=== PATIENT | male | born 1995 | race Caucasian/White ===

== ENCOUNTER → 2022-01-29 | Outpatient (CLI) | payer OTHER, SELFPAY ==
--- NOTE | 2022-01-29 11:02 | RAD_ITS ---
STUDY: X-RAY CHEST REASON FOR EXAM: Male, 26 years old. AORTIC DISSECTION TECHNIQUE: PA and lateral views of the chest. COMPARISON: None. FINDINGS: Hyperinflation. Scattered calcified granulomas. The lungs are clear. There is no demonstrated pleural abnormality. Normal size heart. Normal mediastinum and kobe. Normal visualized pulmonary arteries. Normal visualized aortic arch and descending thoracic aorta. Normal visualized thoracic spine. Normal visualized ribs, clavicles, and shoulders. There is no demonstrated abnormality of the visualized soft tissue structures of the upper abdomen. RAD/Chest PA and Lateral IMPRESSION: Hyperinflation. The lungs are clear. Electronically Signed: Ken Spicer MD at 13:38 EDT ,
== END | disposition home or self-care (01) ==
LOC: MTRAD 10:59
PROVIDERS: PCP Family Medicine; Referring Provider Family Medicine; Visit Provider Family Medicine
DX: I71.00 Dissection of unspecified site of aorta (principal); Z82.49 Family history of ischemic heart disease and other diseases of the circulatory system
CPT/HCPCS: 71046

== ENCOUNTER → 2022-08-14 | Outpatient (CLI) | payer OTHER, SELFPAY ==
[2022-08-14 19:14] LABS: HIV - WCH Non-Reactive (Nonreactive); Hepatitis C Antibody Non-Reactive (Nonreactive)
[2022-08-16 12:07] LABS: Hepatitis B Core Ab Total Negative (Negative)
== END | disposition home or self-care (01) ==
LOC: BFHLAB 14:38
PROVIDERS: PCP Family Medicine; Referring Provider Family Medicine; Visit Provider Family Medicine
DX: Z11.9 Encounter for screening for infectious and parasitic diseases, unspecified (principal)
CPT/HCPCS: 36415; 86703; 86704; 86803

== ENCOUNTER → 2022-08-21 | Outpatient (CLI) | payer OTHER, SELFPAY ==
[2022-08-21 16:13] LABS: Hepatitis B Surface Antigen Non-Reactive (Nonreactive)
== END | disposition home or self-care (01) ==
LOC: BFHLAB 13:10
PROVIDERS: PCP Family Medicine; Referring Provider Family Medicine; Visit Provider Family Medicine
DX: Z11.9 Encounter for screening for infectious and parasitic diseases, unspecified (principal); Z20.9 Contact with and (suspected) exposure to unspecified communicable disease
CPT/HCPCS: 36415; 87340

== ENCOUNTER 2022-09-25 19:03 | Emergency (ER) | payer OTHER, SELFPAY ==
[2022-09-25 19:05] VITALS: BP 150/83; PULSE 76; RESP 19; TEMP 36.6; O2SAT 100; BMI 24.0
--- NOTE | 2022-09-25 20:10 | EDS_ITS ---
HPI History of Present Illness Chief Complaint: Edema PFSH PFS Medical History Former smoker Home Medications creatine monohydrate ea PO 09/25/22 [History Last Taken Unknown] wwakvcggpwhl-xwamcwut-ecxbs acid 400 mcg-vitamin K 40 mcg capsule 1 cap PO DAILY 09/25/22 [History Last Taken Unknown] Allergy/AdvReac Type Severity Reaction Status Date / Time No Known Allergies Allergy Verified 09/25/22 19:06 Social History Smoking Status: Former smoker EXAM Physical Exam Const Vital Signs: 09/25/22 19:05 09/25/22 20:14 Temperature 97.9 F Temperature Source Temporal Pulse Rate 76 Respiratory Rate 19 H Respiratory Pattern Normal Blood Pressure 150/83 H Blood Pressure Mean 105 Pulse Ox 100 Oxygen Delivery Method Room Air MDM MDM MDM Narrative Medical decision making narrative: HISTORY OF PRESENT ILLNESS: 27-year-old male here for bilateral lower extremity swelling. He states after working outdoors all day he noted swelling in bilateral lower legs. He states this resolved with rest. Denies any chest pain, shortness of breath. Denies alcohol use. Denies any skin discolorations or jaundice. Denies any decreased urination. Does note he takes creatine. Patient denies active cancer, being bedridden for greater than 3 days, denies unilateral leg swelling, denies any varicose veins, denies any calf tenderness. Denies major surgery within 12 weeks, recent paralysis, previous DVT. REVIEW OF SYSTEMS: Pertinent positives: Bilateral lower extremity edema Pertinent negatives: Shortness of breath, skin discoloration such as jaundice, chest pain, unilateral leg swelling PHYSICAL EXAM: Nursing triage notes reviewed, Vital signs reviewed Constitutional: please see mdm HENT: MMM, no scleral icterus Eyes: Pupils equal round and reactive to light, Extraocular muscles intact Neck: No stridor, no JVD, full neck ROM Lungs: Clear to auscultation, No wheezing or rales. No increased work of breathing, no conversational dyspnea, no accessory muscle use, no nasal flaring. No respiratory distress noted Heart: Regular rate and rhythm, No murmurs, No rubs and No gallops, 2+ distal pulses (radial, femoral, posterior tibial) in all extremities Abdomen: Soft, there is no tenderness, rigidity, rebound or guarding, no obvious peritoneal signs, no palpable pulsatile abdominal masses, no auscultated abdominal bruit : No CVAT Extremities: No edema Neuro: Intact sensation L1-S1 dermatomal distributions. Intact 5/5 strength in hip flexion (T12-L3). Knee extension (L2-L4). Ankle dorsiflexion (L4-L5). Ankle plantar flexion (S1). Great toe extension (L5). 2+ patellar and Achilles DTRs. Skin: No rash or lesions noted, no jaundice noted MEDICAL DECISION MAKING: Chief Complaint: Leg swelling External records reviewed: No recent echocardiogram, stress test or catheterizations noted in the chart Factors affecting care: None Social determinants of health: None, no alcohol use History obtained from others: The patient's girlfriend Consults: None ALL IMAGES HAVE BEEN PERSONALLY REVIEWED AND INTERPRETED BY MYSELF. MDM Narrative: Patient was hemodynamically stable, afebrile, nontoxic-appearing. Exam without lower extremity edema, no unilateral leg swelling or calf tenderness. No stigmata of VTE. There is no rales on exam. Patient appeared well otherwise healthy. I considered the following differential diagnosis: CHF, liver dysfunction, kidney dysfunction, arrhythmia, venous insufficiency I suspect the patient's presentation is likely secondary to venous insufficiency from working outside in the hot roof all day. I obtained an EKG, chest x-ray and labs to rule out signs of CHF, liver dysfunction, renal dysfunction. Labs and images were remarkable for no evidence of liver dysfunction, kidney dysfunction. EKG without evidence of arrhythmia or myocardial ischemia. Chest x-ray without evidence of CHF. No clear life-limiting etiology to be ascertained. The patient is point for discharge home with close outpatient follow-up. Patient's liver enzymes were mildly elevated does not life- threatening at this time. Recommended repeat lab evaluation at the next possible appointment. Patient's breast understanding. He agreed to return if symptoms change or worsen. He agreed with the plan. Total critical care time today provided was at least 0 minutes. This excludes separately billable procedures. There was a high probability of clinically significant/life threatening deterioration in the patient's condition which required my urgent intervention. Shared decision making: I will have a discussion with the patient and or visitors regarding risk/benefits of further testing or admission. They will be made aware of of the risk/benefits inherent in this decision they will be given the opportunity to voice understanding. Lab Data Attestation: I reviewed the patient's lab results. Lab results narrative: CBC without leukocytosis, severe anemia, no thrombocytopenia. EKG with normal sinus rhythm, normal axis, normal intervals, no ST or T wave changes to suggest ischemia. No evidence of WPW, Brugada, ARVD. LFTs with mild elevations in liver enzymes, no evidence of obstructive pathology with a normal bilirubin normal alkaline phosphatase Labs: Laboratory Results - last 24 hr 09/25/22 09/25/22 20:30 20:30 WBC 5.2 RBC 4.54 L Hgb 13.1 Hct 39.0 L MCV 85.9 MCH 28.9 MCHC 33.6 RDW Std Deviation 41.1 RDW Coeff of Vanita 13.2 Plt Count 228 MPV 9.6 Immature Gran % (Auto) 1.200 H Neut % (Auto) 54.1 Lymph % (Auto) 32.9 Riley % (Auto) 10.4 H Eos % (Auto) 1.2 Baso % (Auto) 0.2 Absolute Neuts (auto) 2.8 Absolute Lymphs (auto) 1.70 Nucleated RBC % 0 Sodium 140 Potassium 3.7 Chloride 106 Carbon Dioxide 28.0 Anion Gap 6 BUN 18 Creatinine 1.05 Estim Creat Clear Calc 118.04 Est GFR (MDRD) Af Amer 110 Est GFR (MDRD) Non-Af 91 BUN/Creatinine Ratio 17.1 Glucose 97 Calcium 8.8 Total Bilirubin 0.40 Direct Bilirubin 0.15 AST 59 H ALT 96 H Alkaline Phosphatase 116 Total Protein 7.0 Albumin 3.6 Globulin 3.4 Radiography Chest X-Ray - ED: Read by ED Physician Diagnostic Testing: Clinical Impression(s) from Imaging Studies Chest X-Ray 09/25/22 20:40 IMPRESSION: No acute cardiopulmonary disease or major interval change. Electronically Signed: Corey Dutta DO at 20:54 EDT Reading Location ID and State: [address] [place] [address] Tel [phone], Service support , I have personally reviewed the patient's chest x-ray. Chest x-ray is unremarkable for pulmonary edema, pneumothorax, pneumonia or focal cardiopulmonary abnormality. Discharge Plan Triage Chief Complaint: Edema ED Provider: Jeffrey Carney Dx/Rx/DC Orders Clinical Impression: Bilateral edema of lower extremity, Elevated liver enzymes Prescriptions: No Action Multi For Him (no iron) 400-40 mcg Capsule 1 cap PO DAILY creatine monohydrate Powder PO Primary Care Provider: Fortino Guerrero Referrals: Fortino Guerrero, DO [Primary Care Provider] - Activity Restrictions/Additional Instructions: Thank you for trusting us with your care today! Please take Tylenol (2 pills, 650 mg), ibuprofen (2 pills, 400 mg) every 6 hours as needed for pain and fever control. Please return to the emergency department if your symptoms change or worsen. Specifically if you develop chest pain, shortness of breath. If you develop yellow discoloration of the skin or eyes. If you develop urinary retention or you not urinate for greater than 12 hours. Please follow with your primary care physician for further outpatient evaluation and management. Disposition Disposition: Home, Self Care
--- NOTE | 2022-09-25 20:27 | EKG12_ITS ---
Test Reason : DYSRYTHMIA Blood Pressure : / mmHG Vent. Rate : 066 BPM Atrial Rate : 066 BPM P-R Int : 150 ms QRS Dur : 090 ms QT Int : 408 ms P-R-T Axes : 067 053 054 degrees QTc Int : 427 ms Normal sinus rhythm Normal ECG Confirmed by JOSIE MARIA, JORGE ([id number]), publishing editor JERMAINE MENDEZ ([id number]) on 09/29/2022 8:02:03 AM Referred By: PEE Confirmed By:JORGE GALINDO MD
[2022-09-25 20:38] LABS: Absolute Neutrophil Count 2.8 X10^3/uL (2.0-7.7); Basophil# 0.01 X10^3/uL; Basophil% 0.2 % (0-1); Eosinophil# 0.06 X10^3/uL; Eosinophils% 1.2 % (0-5); Hemoglobin 13.1 g/dL (13.0-16.5); Lymphocyte % 32.9 % (19-41); Mean Corp Hgb Conc 33.6 g/dL (32-36); Mean Corpuscular Hgb 28.9 pg (27.0-32.0); Mean Corpuscular Volume 85.9 fL (80-94); Mean Platelet Vol. 9.6 fl (6.2-12.0); Monocyte# 0.54 X10^3/uL; Monocyte% 10.4 % (0-10); NRBC Flagged by Analyzer 0 % (0-5); Neutrophil % 54.1 % (47-70); Platelet Count 228 K/mm3 (150-450); RBC Distribution Width CV 13.2 % (11.6-14.6); RBC Distribution Width SD 41.1 fl (35.1-43.9); Red Blood Count 4.54 M/mm3 (4.6-6.2); White Blood Count 5.2 K/mm3 (4.4-11.0)
--- NOTE | 2022-09-25 20:40 | RAD_ITS ---
STUDY: X-RAY CHEST REASON FOR EXAM: Male, 27 years old. Lower extremity edema. TECHNIQUE: PA and lateral views of the chest. COMPARISON: January 29, 2022. FINDINGS: Lungs are mildly hyperexpanded. There is no focal mass or infiltrate. No pneumothorax. There is no demonstrated pleural abnormality. Normal size heart. Normal mediastinum and kobe. Normal visualized pulmonary arteries. Normal visualized aortic arch and descending thoracic aorta. Normal visualized thoracic spine. Normal visualized ribs, clavicles, and shoulders. There is no demonstrated abnormality of the visualized soft tissue structures of the upper abdomen. RAD/Chest PA and Lateral IMPRESSION: No acute cardiopulmonary disease or major interval change. Electronically Signed: Corey Dutta DO at 20:54 EDT ,
[2022-09-25 20:53] LABS: AST(SGOT) 59 U/L (15-37); Alanine Aminotransfer ALT/SGPT 96 U/L (16-61); Albumin, Serum 3.6 g/dL (3.2-5.0); Alkaline Phosphatase 116 U/L (45-117); Anion Gap 6 (5-15); BUN 18 mg/dL (7-18); BUN/Creat Ratio 17.1 RATIO (10-20); Bilirubin, Direct 0.15 mg/dL (0.00-0.30); Calcium,Total 8.8 mg/dL (8.5-10.1); Chloride 106 mmol/L (98-107); Creatinine, Serum 1.05 mg/dL (0.70-1.30); EST Glomerular Filtration Rate 91 mL/min (>60); Est Glom Filt Rate - Afr Amer 110 mL/min (>60); Estimated Creatinine Clearance 118.04 ml/min; Globulin 3.4 g/dL (2.2-4.2); Glucose 97 mg/dL (74-106); Potassium 3.7 mmol/L (3.5-5.1); Sodium Level 140 mmol/L (136-145)
== END 2022-09-25 21:33 | disposition home or self-care (01) ==
PROVIDERS: Emergency Provider Emergency Medicine; PCP Family Medicine; Visit Provider Emergency Medicine
DX: R60.0 Localized edema (principal); R74.8 Abnormal levels of other serum enzymes; Z87.891 Personal history of nicotine dependence
CPT/HCPCS: 71046; 80048; 80076; 85025; 93005; 99282; A4216

== ENCOUNTER → 2024-05-26 | Outpatient (CLI) | payer OTHER, SELFPAY ==
[2024-05-26 18:03] LABS: Absolute Lymphocyte Count 1.33 X10^3/uL (0.83-4.51); Absolute Neutrophil Count 3.5 X10^3/uL (2.0-7.7); Basophil# 0.01 X10^3/uL; Basophil% 0.2 % (0-1); Eosinophil# 0.05 X10^3/uL; Eosinophils% 0.9 % (0-5); Hematocrit 41.7 % (40-54); Hemoglobin 14.1 g/dL (13.0-16.5); Lymphocyte # 1.33 X10^3/ul (0.83-4.51); Lymphocyte % 24.3 % (19-41); Mean Corp Hgb Conc 33.8 g/dL (32-36); Mean Corpuscular Volume 82.7 fL (80-94); Mean Platelet Vol. 10.9 fl (6.2-12.0); Monocyte# 0.58 X10^3/uL; Monocyte% 10.6 % (0-10); NRBC Flagged by Analyzer 0 % (0-5); Neutrophil % 63.8 % (47-70); Platelet Count 220 K/mm3 (150-450); RBC Distribution Width CV 12.7 % (11.6-14.6); RBC Distribution Width SD 37.9 fl (35.1-43.9); Red Blood Count 5.04 M/mm3 (4.6-6.2); White Blood Count 5.5 K/mm3 (4.4-11.0)
[2024-05-26 18:39] LABS: ALB/GLOB Ratio 1.4 RATIO (0.9-2.4); AST(SGOT) 13 U/L (15-37); Alanine Aminotransfer ALT/SGPT 20 U/L (16-61); Albumin, Serum 4.1 g/dL (3.2-5.0); Alkaline Phosphatase 113 U/L (45-117); Anion Gap 6 (5-15); BUN 17 mg/dL (7-18); BUN/Creat Ratio 15.6 RATIO (10-20); Chloride 108 mmol/L (98-107); Creatinine, Serum 1.09 mg/dL (0.70-1.30); EST Glomerular Filtration Rate 86 mL/min (>60); Est Glom Filt Rate - Afr Amer 104 mL/min (>60); Glucose 121 mg/dL (74-106); Potassium 3.8 mmol/L (3.5-5.1); Protein, Total 7.1 g/dL (6.4-8.2); Sodium Level 141 mmol/L (136-145)
== END | disposition home or self-care (01) ==
LOC: BFHLAB 15:37
PROVIDERS: PCP Family Medicine; Visit Provider Family Medicine
DX: R74.8 Abnormal levels of other serum enzymes (principal); R53.83 Other fatigue
CPT/HCPCS: 36415; 80053; 84403; 85025